=== PATIENT | male | born 1990 | race Caucasian/White ===

== ENCOUNTER 2025-04-06 14:23 | Emergency (ER) | payer MEDICAID, SELFPAY ==
[2025-04-06 14:40] VITALS: BP 114/67; PULSE 89; RESP 18; TEMP 36.4; O2SAT 97; BMI 38.9
--- NOTE | 2025-04-06 14:43 | ED.DENTAL ---
HPI - Dental/Oral General Chief complaint: Dental/Oral Stated complaint: Severe tooth pain Time Seen by Provider: 04/06/25 14:42 Source: patient Mode of arrival: ambulatory Limitations: no limitations History of Present Illness ED Provider: FILIPPO HIDALGO PA-C HPI Narrative: 34 year old male presents to the ED today for left upper and lower dental pain x1 week. Patient states he was started on amoxicillin for dental infection 3 days ago. He has been taking this as prescribed. No missed doses. He was also prescribed Tramadol and Tylenol for pain however states that these medications do not touch his pain. Reports allergy to NSAIDs. He has been unable to sleep for the last few days due to the pain. He has a follow up appointment with his dentist on Tuesday (in 2 days). Denies fever, chills, pain radiation to neck, dysphagia. MD Complaint: tooth pain Teeth map:  1. 2. Onset (ago): week(s) Duration: constant Severity: severe Related Data Previous Rx's ?Medication ?Instructions ?Recorded oxycodone 5 mg tablet 5 mg PO Q8H PRN pain (scale score 04/06/25 7-10) 3 days #9 tabs Allergies Allergy/AdvReac Type Severity Reaction Status Date / Time ibuprofen (IBUPROFEN) Allergy Intermediate Anaphylaxis Verified 04/06/25 14:42 Review of Systems Review of Systems: Constitutional: No fever, chills, fatigue, night sweats, weight changes ENT/Mouth: No ear pain, hearing loss, nasal congestion, sinus pain, rhinorrhea, sore throat, +dental pain Eyes: No eye pain, swelling, redness, vision changes, discharge Cardio: No chest pain, palpitations, SHELL, orthopnea, peripheral edema Pulm: No SOB, cough, sputum, wheezing, dyspnea, hemoptysis GI: No nausea, vomiting, hematemesis, abdominal pain, diarrhea, constipation, hematochezia, melena : No irregular bleeding, dysuria, frequency, urgency, hesitancy, hematuria, flank pain, urinary flow changes, urinary incontinence or retention MSK: No back pain, neck pain, joint pain, myalgias Skin: No lesions, rashes Neuro: No weakness, numbness, paresthesias, LOC, dizziness, headache Psych: No anxiety/panic, depression, SI/HI, AH/VH All other systems reviewed and are negative. [facility] Past Medical History Attestation statement: The following information was validated with the patient. Source: old records reviewed and nursing notes reviewed Social History Social History Advance Directives: No Advance Directives Information Provided: No Physical Exam Vital Signs: Vital Signs: Last Vital Signs Temp 97.5 F 04/06/25 14:40 Pulse 89 04/06/25 14:40 Resp 18 04/06/25 14:40 BP 114/67 04/06/25 14:40 Pulse Ox 97 04/06/25 14:40 O2 Del Method Room Air 04/06/25 14:40 BMI result Body Mass Index 38.9 Vital signs stable, afebrile. Const: General: cooperative, comfortable and no acute distress Orientation/consciousness: patient oriented x3 Limitations: no limitations HEENT: Other: + No facial edema. Tongue and lips wnl + multiple dental caries and poor dentition. cracked left upper and left lower molars with noted caries and localized periapical swelling to the /lingual ginginva. No pointing. No active bleeding/ discharge. TTP. No palpable fluctuance. + No edema to buccal mucosa + Posterior oropharynx without erythema/edema. Uvula midline. Controlling secretions and speaking in complete sentences + No submandublar or submental LAD + No cervical LAD + no jose antonio's angina Head: Yes normal to inspection, Yes No palpable skull fracture present, Yes normocephalic and Yes atraumatic Ears: hearing grossly normal bilaterally, external ears normal, TM's normal bilaterally, EAC's normal, mastoids normal and no periauricular adenopathy Eyes: General: appearance normal, both eyes and all related structures Conjunctivae: conjunctivae normal Sclerae: sclerae normal Pupils: Equal, round and reactive pupils present Neck: Neck: Yes normal visual inspection and Yes no lymphadenopathy Resp: Effort & Inspection: normal respiratory effort and no stridor Auscultation: clear to auscultation bilaterally Cardio: Rate: regular rate Rhythm: regular rhythm Skin: General skin exam: no rashes or lesions noted Neuro: General: patient oriented x3 and gait normal Cranial nerves: Yes Equal, round and reactive pupils present Course Course Course Narrative: Patient noted to have dental infection. There is no evidence of abscess that warrants drainage at this time. he is currently being treated with amoxicillin which I feel as the appropriate treatment. I do not feel as though the antibiotic needs to be changed. He has a appropriate follow up with his dentist on Tuesday morning, in 2 days. Advised patient to discontinue tramadol at home as this is not helping with his pain. Discharged him home with a prescription for oxycodone to hold him over until his appointment on Tuesday. Discussed the importance of not taking tramadol with oxycodone. He verbalizes understanding. Patient has remained stable throughout ED visit today. I discussed worrisome signs and symptoms and when to return to the ED. All questions answered at this time. Patient is agreeable with disposition and stable for discharge. Medical Decision Making Medical Decision Making MDM Narrative: 34 year old male presents to the ED today for left upper and lower dental pain x1 week. Vital signs stable, afebrile. he is well appearing and in NAD. on exam, multiple dental caries and poor dentition. cracked left upper and left lower molars with noted caries and localized periapical swelling to the /lingual ginginva. No pointing. No active bleeding/ discharge. TTP. No palpable fluctuance. Differential includes dental/ periapical abscess/infection. Unlikely mono, herpes, sialadenitis, sialolithiasis, PHARMACIST AIDE, retropharyngeal abscess, deep neck infection, osteomyelitis, facial cellulitis/ abscess, lymphoma. Plan to discharge patient on pain control until f/u with dentist on Tuesday. Differential Diagnosis Differential Diagnoses: The differential diagnosis associated with the presentation includes as above. Admission/Observation Not indicated. Independent Historian Clinical information obtained from an independent historian. History obtained from or confirmed by: Spouse Tests considered The following testing was considered but not selected: I considered obtaining a CT of the soft tissues neck however these is no evidence of ludwigs angina or concern for deep tissue infection. Not warranted at this time. Prescription Management I considered prescription management with: Pain Medication Chronic Conditions Patient?s care impacted by: Other (dental caries) Social Determinants Patient?s care significantly limited by Social Determinants of Health including: Other Social Determinant of Health Critical Care Time Critical Care Time Critical Care Time: No Discharge Plan Discharge Clinical Impression: Toothache Patient Disposition: Home, Self-Care Instructions: Oxycodone, Rapid Release (By mouth), Toothache (ED) Additional Instructions: You were evaluated in ED today for dental pain. You have a dental infection. Continue the amoxicillin that was prescribed to you a few days ago. Take this to completion. Take tylenol/ motrin at home as needed for pain. Oxycodone is a pain medication that has been sent to your pharmacy for you to take for break-through pain. Use this with caution. Do not take Oxycodone with Tramadol. This can be deadly. Keep your follow up appointment with your dentist on Tuesday. You will likely need to have these teeth pulled. Prescriptions: New oxycodone 5 mg tablet 5 mg PO Q8H PRN (Reason: pain (scale score 7-10)) 3 Days Qty: 9 0RF Rx Instructions: Partial Fill upon patient request. Referrals: Physician,Unknown J [Primary Care Provider, Medical] Discharge Date/Time: 04/06/25 14:53 Print Language: Armenian
[2025-04-06 14:51] VITALS: BP 114/67; PULSE 89; RESP 18; TEMP 36.4; O2SAT 97
== END 2025-04-06 14:53 | disposition home or self-care (01) ==
PROVIDERS: Emergency Provider Emergency Medicine
DX: K08.89 Other specified disorders of teeth and supporting structures (principal)
CPT/HCPCS: 99282; 99283

== ENCOUNTER 2025-04-08 16:32 | Emergency (ER) | payer MEDICAID, SELFPAY ==
[2025-04-08 17:14] VITALS: BP 129/63; PULSE 100; RESP 18; TEMP 36.7; O2SAT 96; BMI 40.5
--- NOTE | 2025-04-08 17:14 | ED.GENADULT ---
HPI - General Adult General Chief complaint: Dental/Oral Stated complaint: tooth pain Source: patient, RN notes reviewed and old records reviewed Mode of arrival: ambulatory Limitations: no limitations History of Present Illness ED Provider: Blanca BARBOSA narrative: Patient is a 34-year-old male presenting to the emergency department with complaint of upper and lower dental pain on left side. Has already been seen at urgent care and was started on amoxicillin. Went to the dentist today but was told that he needed to complete the course of antibiotics prior to having his teeth extracted. He has an appointment for Tuesday, 04/10, at 1:30 p.m.. He is requesting additional oxycodone for severe pain. He denies any difficulty opening or closing jaw, swallowing, shortness of breath. Denies fevers. MD complaint: Dental pain Related Data Previous Rx's ?Medication ?Instructions ?Recorded oxycodone 5 mg tablet 5 mg PO Q8H PRN pain (scale score 04/06/25 7-10) 3 days #9 tabs oxycodone 5 mg tablet 5 mg PO Q8H PRN severe pain (scale 04/08/25 score 7-10) #6 tabs Allergies Allergy/AdvReac Type Severity Reaction Status Date / Time ibuprofen (IBUPROFEN) Allergy Intermediate Anaphylaxis Verified 04/08/25 17:17 Review of Systems Review of Systems: As per HPI Yes all other systems are reviewed and are negative Constitutional: Constitutional: Reports as per HPI Physical Exam ED Vital Signs: Vital signs have been reviewed and appear to be correct. Blood pressure normal. Heart rate normal. Respiratory rate normal. Temperature normal. Oxygen saturation normal. Const General: cooperative, healthy appearing and no acute distress Orientation/consciousness: oriented to person, oriented to place, oriented to time and patient oriented x3 Limitations: no limitations [facility] Head: Yes normocephalic and Yes atraumatic Ears: external ears normal General nose exam: Normal external nose present Face and sinus: Yes face symmetric Mouth: Normal oral and palatal mucosa present, lip normal, tongue normal, oropharynx normal, moist mucous membranes, no audible dysphonia, no drooling and no trismus Teeth and gingiva: poor dentition Teeth image:  1. caries with erythematous gingiva 2. caries with erythematous gingiva Throat: Yes posterior oropharynx normal and Yes uvula midline Eyes Pupils: Equal, round and reactive pupils present Neck Neck: Yes normal visual inspection and Yes supple Resp Effort & Inspection: normal respiratory effort and able to speak in complete sentences Auscultation: clear to auscultation bilaterally Cardio Rate: regular rate Rhythm: regular rhythm Heart sounds: S1 normal heart sound present and S2 normal heart sound present GI Palpation (GI): Soft to palpation and nontender Auscultation: normoactive bowel sounds General: Yes no CVA tenderness Back/Spine/Pelvis Back: no CVA tenderness Skin General skin exam: elasticity normal and turgor normal Neuro General: oriented to person, oriented to place, oriented to time, patient oriented x3, moves all extremities, no focal motor deficits and CN's II-XI intact bilaterally Cranial nerves: Yes Equal, round and reactive pupils present Cognition (Neuro): normal cognition Extrem General: Yes full ROM, Yes no pedal edema and Yes no calf tenderness Psych Mental Status: mental status grossly normal Affect: normal affect Thought process: Normal thought process present Medical Decision Making Medical Decision Making MDM Narrative: Patient is a 34-year-old male presenting to the emergency department with complaint of upper and lower dental pain on left side. On exam patient is awake, A+Ox3, VS WNL, afebrile, normal neurological exam without focal deficits, physical exam findings as above. Given reported symptoms and physical exam findings, initial differential includes but is not limited to dental pain, dental infection. No evidence of abscess, Enmanuel's angina. Given that patient is following up with dentist appropriately and has appointment for extraction on Tuesday, I am comfortable providing a few additional oxycodone for severe pain. Advised patient he can continue to use Tylenol and ibuprofen as well. Return precautions discussed. Patient verbalized understanding of and agreement with plan. Differential Diagnosis Differential Diagnoses: The differential diagnosis associated with the presentation includes As per MDM Admission/Observation Consideration of admission/observation: Escalation of care including admission/observation considered Patient would have been admitted to the hospital had their clinical presentation warranted hospital admission. External Record Review External record reviewed: Inpatient record, Office record and Outpatient record Prescription Management I considered prescription management with: Pain Medication Discharge Plan Discharge Clinical Impression: Pain, dental Patient Disposition: Home, Self-Care Instructions: Toothache (ED) Additional Instructions: You were evaluated in the ED for dental pain. You are being prescribed oxycodone for pain to cover you until you can have your tooth extracted on Tuesday. Complete the full course of antibiotics as prescribed. Return for fever 100.4 or greater, difficulty opening or closing your jaw, difficulty swallowing or breathing. Prescriptions: New oxycodone 5 mg tablet 5 mg PO Q8H PRN (Reason: severe pain (scale score 7-10)) Qty: 6 0RF Rx Instructions: Partial Fill upon patient request. No Action oxycodone 5 mg tablet 5 mg PO Q8H PRN (Reason: pain (scale score 7-10)) 3 Days Qty: 9 0RF Rx Instructions: Partial Fill upon patient request. Interventions: ED Discharge Assessment Last Done: 04/08/25 17:24 Print Language: Cambodian
[2025-04-08 17:24] VITALS: BP 129/63; PULSE 100; RESP 18; TEMP 36.7; O2SAT 96
== END 2025-04-08 17:25 | disposition home or self-care (01) ==
PROVIDERS: Emergency Provider Emergency Medicine
DX: K08.89 Other specified disorders of teeth and supporting structures (principal); K02.9 Dental caries, unspecified
CPT/HCPCS: 99282; 99283

== ENCOUNTER 2025-04-11 00:41 | Emergency (ER) | payer OTHER, SELFPAY ==
[2025-04-11 00:54] VITALS: BP 142/76; PULSE 83; RESP 18; TEMP 36.7; O2SAT 96; BMI 42.0
--- NOTE | 2025-04-11 01:54 | ED.GENADULT ---
HPI - General Adult General Chief complaint: Dental/Oral Stated complaint: tooth pain Time Seen by Provider: 04/11/25 01:50 Source: patient Limitations: no limitations History of Present Illness ED Provider: Sarah Manning PA-C HPI narrative: 34-year-old male presents with left-sided dental pain. Patient states he had an extraction of 1 of the upper molars earlier today, he states they were unable to remove the left lower molar, that he needs an oral surgeon. Patient is currently on antibiotic. He states his dentist we will not give him pain medication, that she states ?I only give Tylenol and ?. Denies fever, trismus, drooling. Related Data Previous Rx's ?Medication ?Instructions ?Recorded oxycodone 5 mg tablet 5 mg PO Q8H PRN pain (scale score 04/06/25 7-10) 3 days #9 tabs oxycodone 5 mg tablet 5 mg PO Q8H PRN severe pain (scale 04/08/25 score 7-10) #6 tabs Allergies Allergy/AdvReac Type Severity Reaction Status Date / Time ibuprofen (IBUPROFEN) Allergy Intermediate Anaphylaxis Verified 04/11/25 00:54 Review of Systems Review of Systems: Yes all other systems are reviewed and are negative Constitutional: Constitutional: Denies fatigue and Denies fever(s) ENT: Reports dental pain Cardiovascular: Cardiovascular: Denies dyspnea Respiratory: Respiratory: Denies dyspnea Gastrointestinal: Gastrointestinal: Denies abdominal pain, Denies nausea and Denies vomiting Endocrine: Endocrine: Denies fatigue PMF Past Medical History Attestation statement: The following information was validated with the patient. Social History Social History Advance Directives: No Advance Directives Information Provided: Yes Physical Exam ED Vital Signs: Vital Signs - 24 hr 04/11/25 00:54 Temperature 98.1 F Pulse Rate 83 Respiratory Rate 18 Blood Pressure 142/76 H Pulse Oximetry 96 Oxygen Delivery Method Room Air BMI result Body Mass Index 42.0 Const Other: Awake, appears older than stated age Orientation/consciousness: patient oriented x3 HENMT Other: Overall poor dentition, I can see an open socket where the extraction occurred left upper molar, the left lower molar is decayed, with the recession of the gumline,, no trismus or drooling Resp Effort & Inspection: normal respiratory effort Cardio Other: Normal peripheral perfusion Skin Other: Warm dry no rash Neuro General: patient oriented x3, gait normal, no focal motor deficits and CN's II-XI intact bilaterally Psych Other: Hostile, belligerent Medical Decision Making Medical Decision Making MDM Narrative: 34-year-old male presents with left-sided dental pain. Patient states he had an extraction of 1 of the upper molars earlier today, he states they were unable to remove the left lower molar, that he needs an oral surgeon. Patient is currently on antibiotic. He states his dentist we will not give him pain medication, that she states ?I only give Tylenol and ?. Denies fever, trismus, drooling. Problem: Known dental infection History: Per patient I have considered the following differential diagnoses: Dental infection, dental pain Plan: The patient is here requesting pain medication. In chart review, this is the 3rd visit to the emergency room requesting pain medication. In review of the prescription monitoring site, the patient's dentist filled an appropriate amount of tramadol for him. Following this, he returns to the ER and receives a prescription for oxycodone from 1 of the providers. Days later he received yet another prescription from 1 of our ED providers. He should have had enough medication with the initial script from his dentist. The graft as listed below. I have relayed the finding to the patient, he abruptly is leaving, swearing at myself and the nurse. 04/09/2025 04/08/2025 04/09/2025 1 Oxycodone Hcl (Ir) 5 Mg Tablet 6 2 Ca Szy [id number] [facility] (14[facility]) 0/0 22.50 [facility] Medicaid [place] 04/06/2025 04/06/2025 04/06/2025 1 Oxycodone Hcl (Ir) 5 Mg Tablet 9 3 Ra Yost [id number] [facility] (14[facility]) 0/0 22.50 M[facility] Medicaid [place] 04/03/2025 04/03/2025 04/03/2025 1 Tramadol Hcl 50 Mg Tablet 20 7 Mckeon Zulma [id number] [facility] (1450) Discharge Plan Discharge Clinical Impression: Dental caries, Dental infection Patient Disposition: Home, Self-Care Additional Instructions: 04/09/2025 04/08/2025 04/09/2025 1 Oxycodone Hcl (Ir) 5 Mg Tablet 6 2 Ca Szy [id number] [facility] (1450) 0/0 22.50 MME Medicaid [place] 04/06/2025 04/06/2025 04/06/2025 1 Oxycodone Hcl (Ir) 5 Mg Tablet 9 3 Ra Yost [id number] [facility] (1450) 0/0 22.50 MME Medicaid [place] 04/03/2025 04/03/2025 04/03/2025 1 Tramadol Hcl 50 Mg Tablet 20 7 Mckeon Zulma [id number] [facility] (1450) Above is a graph from your controlled substance history, which as a healthcare provider, I am bound by [place] [employer] law, to review the prescription monitoring program, before dispensing controlled substances. Your DENTIST had prescribed pain medication for 7 days, you then received an additional script 3 days later, followed by yet another script 6 days later. This is very concerning for narcotic-seeking behaviors. Therefore, I am unable to prescribe additional medication at this time. You can continue to follow up with your dentist. Be sure to complete your course of antibiotics. Prescriptions: No Action oxycodone 5 mg tablet 5 mg PO Q8H PRN (Reason: pain (scale score 7-10)) 3 Days Qty: 9 0RF Rx Instructions: Partial Fill upon patient request. oxycodone 5 mg tablet 5 mg PO Q8H PRN (Reason: severe pain (scale score 7-10)) Qty: 6 0RF Rx Instructions: Partial Fill upon patient request. Interventions: ED Discharge Assessment Last Done: 04/11/25 02:19 Discharge Date/Time: 04/11/25 02:20 Print Language: Welsh
--- NOTE | 2025-04-11 02:14 | PC.NURSE ---
Alberto Griffiths into discuss plan of care and education on proper use of prescriptions, pt refused to sign paper work, pt became argumentative, and yelling another [facility] after provider attempted to explain prescription dispensation.
[2025-04-11 02:19] VITALS: BP 142/76; PULSE 83; RESP 18; TEMP 36.7; O2SAT 96
--- NOTE | 2025-04-11 02:19 | PC.NURSE ---
pt refused medication and walked out.
== END 2025-04-11 02:20 | disposition home or self-care (01) ==
PROVIDERS: Emergency Provider Emergency Medicine
DX: K02.9 Dental caries, unspecified (principal)
CPT/HCPCS: 99282